=== PATIENT | male | born 1980 | race Two or more races ===

== ENCOUNTER 2025-01-31 02:33 | Emergency (ER) | payer SELFPAY ==
[~2025-01-31] VITALS: Ht 172.7 cm; Wt 102.0 kg
[2025-01-31 02:38] VITALS: TEMP 98.1
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
[2025-01-31 04:18] VITALS: PULSE 114; RESP 20; O2SAT 96
[2025-01-31] MEDS: BACITRACIN TOP OINT 1 UD PKG TOP ONE (04:32)
[2025-01-31 05:48] VITALS: BP 150/98; PULSE 100; RESP 20; O2SAT 97
== END 2025-01-31 05:59 ==
LOC: ER 02:33
DX: S00.81XA Abrasion of other part of head, initial encounter (principal); S39.91XA Unspecified injury of abdomen, initial encounter; Z88.5 Allergy status to narcotic agent; Z11.4 Encounter for screening for human immunodeficiency virus [HIV]; V43.52XA Car driver injured in collision with other type car in traffic accident, initial encounter; Y93.I9 Activity, other involving external motion; Y92.488 Other paved roadways as the place of occurrence of the external cause; Y99.8 Other external cause status
CPT/HCPCS: 86703